=== PATIENT | female | born 1980 | race Caucasian/White ===

== ENCOUNTER 2016-10-10 09:34 | Emergency (ER) | payer SELFPAY ==
[~2016-10-10] VITALS: Ht 170.2 cm; Wt 54.4 kg
[2016-10-10 09:41] VITALS: BP 129/80
--- NOTE | 2016-10-10 09:44 | NUR ---
PATIENT TO BED 3 AT THIS TIME.
--- NOTE | 2016-10-10 09:51 | NUR ---
PT AMBULATED TO OF 1 AT THIS TIME.
[2016-10-10 10:46] VITALS: BP 129/80
--- NOTE | 2016-10-10 10:47 | NUR ---
PATIENT IS A 36 YO FEMALE BIB SELF FOR REFILL OF OUTPATINET HIV MEDS FROM [facility]. KSHE IS AWAKE AND ALERT IN NO ACUTE DISTRESS. TO OVERFLOW 1 AWAITING MD MEDINA.
--- NOTE | 2016-10-10 10:48 | NUR ---
SEVERAL ATTEMPTS TO CONTACT [facility] FOR VERIFICATION OF PATIENT SCRIPTS HAVE BEEN UNSUCCESSFUL. PATIENT WISHES TO LEAVE AND SIGNED AMA.
--- NOTE | 2016-10-10 10:49 | NUR ---
Patient discharged with v/s stable. Written and verbal after care instructions given and explained. Patient verbalized understanding. Ambulatory with to car. All questions addressed prior to discharge. Advised to follow up with PMD.
== END 2016-10-10 10:49 | disposition left against medical advice (07) ==
LOC: MED 09:34
DX: Z76.0 Encounter for issue of repeat prescription (principal)
CPT/HCPCS: 99283